=== PATIENT | male | born 1980 | race American Indian/Alaskan Native ===

== ENCOUNTER 2020-12-31 16:26 | Emergency (ER) | payer SELFPAY ==
[~2020-12-31] VITALS: Ht 175.3 cm; Wt 70.3 kg
[2020-12-31] MEDS ORDERED: IOPAMIDOL 370 MG/ML 200 ML INFUS..BTL INJ ONE (17:18)
[2020-12-31] MEDS ORDERED: SODIUM CHLORIDE 0.9% 50ML 50 ML ONE (17:18)
[2020-12-31 18:47] VITALS: BP 128/78
== END 2020-12-31 18:53 | disposition home or self-care (01) ==
LOC: FSED 16:45
DX: R07.89 Other chest pain (principal); R09.1 Pleurisy; F17.210 Nicotine dependence, cigarettes, uncomplicated
CPT/HCPCS: 71260; 80053; 82553; 84484; 85025; 99284; Q9967; 93005